=== PATIENT | male | born 1955 | race Caucasian/White ===

== ENCOUNTER → 2020-01-01 | Day surgery (SDC) | payer OTHER ==
[~2020-01-01] MED LIST: CARDIZEM CD240 M1 PO; CARDIZEM120 MG PO; ELIQUIS5 MG PO; MELATONIN3 M1 PO; NORCO 5-325 TA1 EAC1 PO; ULTRAM 50MG TAB50 MG PO
[2020-01-01 07:34] LABS: HEMATOCRIT 42.7 % (42.0-52.0); HEMOGLOBIN 14.6 gm/dL (14.0-18.0); MCH 34.8 pg (26.0-34.0); MCHC 34.3 g/dL (28.0-37.0); MCV 101.5 fL (80.0-100.0); RBC 4.21 mil/uL (4.50-6.00); RDW-CV 12.8 % (10.5-14.5); WBC 5.3 thou/uL (4.0-11.0)
[2020-01-01 07:43] LABS: CALCIUM 8.2 mg/dL (8.5-10.1); POTASSIUM 3.9 mmol/L (3.5-5.1)
--- NOTE | 2020-01-01 14:12 | EKG ---
[place] [address] ELECTROCARDIOGRAM REPORT Name: JENNIFER CHAND Room: [facility]#: [id number] Admission: 01/01/20 Attend Phys: Sly Mendes Discharge: Date of : 51 Date of Service: 01/01/2039 Report #: [id number] THIS REPORT FOR: //name// [facility] Test Date: 2020-01-01 Test Time: 07:39:42 Pat Name: JENNIFER CHAND Department: Room: Gender: [employer] Work[employer]: : 1955 Requested By: Sly Larsen Order Number: [id number] Alana MD: Colt Colón Measurements Intervals [place] Rate: 63 P: AK: QRS: 73 QRSD: 115 T: 28 QT: 403 QTc: 413 Interpretive Statements Atrial fibrillation Nonspecific intraventricular conduction delay Low voltage, extremity leads No previous ECG available for comparison Electronically Signed On 01-01-2020 14:10:53 CDT by Colt Colón [email or web address] <ELECTRONICALLY SIGNED> By: Colt Colón MD, [facility] 01/01/20 1410 8 Colt Colón MD, FACC /EPI
--- NOTE | 2020-01-02 15:09 | PATH ---
[address] [address] PATHOLOGY RPT PROCEDURE Name: JENNIFER CHAND Room: [facility] Lana.#: [id number] Admission: 01/01/20 Date of : 51 Discharge: Report #: [id number] Path Case #: [id number] [facility] Accession Number: [id number] . 01 Material submitted: . PART A: spermatic cord - RIGHT CORD LIPOMA. Modifiers: right PART B: hernia - RIGHT INGUINAL HERNIA SAC. Modifiers: right . 01 Clinical history: . Right inguinal hernia . 02 Diagnosis: A. Cord lipoma (right): - Benign fibrofatty tissue. . B. Right inguinal hernia sac: - Benign mesothelial-lined fibromembranous/fibromuscular tissue with mild chronic inflammation and prominent fibroplasia. (RICH:lolis 01/02/2020) QTP 01/02/2020 1323 Local . 02 Electronically signed: . Usman Fernández MD, Pathologist NPI- [id number] . 01 Gross description: . A. The specimen is received in formalin, labeled "Jennifer Chand, cord lipoma (right)". Received is a segment of encapsulated yellow-layne lobulated tissue measuring 6.3 x 2.3 x 1.7 cm in greatest dimensions. Sectioning reveals bright yellow cut surfaces with no grossly distinct nodules or lesions. The specimen is submitted representatively in cassette A1. . B. The specimen is received in formalin, labeled "Jennifer Chand, right inguinal hernia sac". Received is a segment of fibromembranous tissue measuring 2.6 x 1.7 x 1.0 cm in greatest dimensions. No distinct nodules or lesions are noted grossly. The specimen is submitted representatively in cassette B1. (CAA; 01/01/2020) QA/[facility] 01/01/2020 1707 Local . 02 Pathologist provided ICD-10: K40.90 . 02 CPT . 389657, 524487 Specimen Comment: A courtesy copy of this report has been sent to [phone] 309-[address] [address] PATHOLOGY RPT PROCEDURE Name: MANNIEJENNIFER [id number] Admission: 01/01/20 Date of : 51 Discharge: Report #: [id number] Path Case #: [id number] Specimen Comment: [id number] Specimen Comment: Report sent to / DR BARRIGA Performed at: 01 [facility] [address], [place], [place] [id number] MD Gold Franklin MD Phone: [phone] Performed at: [address] [facility] [address] [address], [place], [place] [id number] MD Usman Fernández MD Phone: [phone]
--- NOTE | 2020-01-07 11:48 | OP ---
[facility] [address] [place] [address] OPERATIVE REPORT Name: JENNIFER CHAND [id number] Admission: 01/01/20 Attend Phys: Sly Larsen Discharge: Date of : 51 Report #: [id number] THIS REPORT FOR: //name// cc: Mandeep Jensen MD, Kevin R. MD ~ THIS REPORT FOR: //name// CC: Sly Jensen DATE OF SERVICE: 01/01/2020 PREOPERATIVE DIAGNOSIS: Right inguinal hernia. POSTOPERATIVE DIAGNOSIS: Right indirect inguinal hernia. OPERATION: Right inguinal hernia repair with mesh. SURGEON: Sly Larsen MD. ANESTHESIA: General. ESTIMATED BLOOD LOSS: Minimal. SPECIMENS: 1. Cord lipoma. 2. Hernia sac. DESCRIPTION OF PROCEDURE: After informed consent was obtained, the patient was brought to the operating room and placed supine. SCDs were placed and working, preoperative antibiotics were administered, general anesthesia was induced. The right groin was prepped and draped in the usual sterile fashion. The area was anesthetized with 10 mL of 0.5% Marcaine. Incision was made 1 cm above the right external ring. Cautery dissection was made down through the subcutaneous tissue. Superficial epigastric vessels were ligated using a 3-0 Vicryl tie. The aponeurosis of the external oblique was identified. The aponeurosis was incised along the length of its fibers down to the external ring. A self-retaining retractor was placed. The cord was identified and isolated with a Thompsons drain. A cord lipoma was isolated and dissected out from the cord structures. It was ligated with a 3-0 Vicryl suture and sent off as a specimen. There was a small indirect hernia sac. This was fully reduced to the internal ring. It was ligated using a 3-0 Vicryl suture. A Bard soft mesh was inserted. It was trimmed to fit the area. It was sutured to the pubic tubercle. Interrupted 2-0 [place] [address] OPERATIVE REPORT Name: JENNIFER CHAND Room: [facility]#: [id number] Admission: 01/01/20 Attend Phys: Sly Larsen Discharge: Date of : 51 Report #: [id number] conjoined area. Interrupted Prolene sutures were placed suturing the mesh to the shelving edge of the inguinal ligament. The tails were then cut and placed around the internal ring. The tails were sutured together also with the Prolene. Tails were then tucked behind the aponeurosis. There was enough room for the cord structures without being too tight. The aponeurosis was reapproximated with running 3-0 Vicryl. Joenlle's fascia was reapproximated with 3-0 Vicryl suture. Skin was closed with 4-0 Monocryl in running subcuticular fashion. Sterile dressings were applied. COMPLICATIONS: None. DISPOSITION: The patient was taken to recovery in satisfactory condition. <ELECTRONICALLY SIGNED> By: Sly Larsen MD 01/07/20 1148 1119 1219Sly Larsen MD /nt
== END | disposition home or self-care (01) ==
LOC: M.SUR 06:55
PROVIDERS: ATTEND Surgery
DX: K40.90 Unilateral inguinal hernia, without obstruction or gangrene, not specified as recurrent (principal); D17.6 Benign lipomatous neoplasm of spermatic cord; I48.91 Unspecified atrial fibrillation; Z11.59 Encounter for screening for other viral diseases; Z98.890 Other specified postprocedural states; Z85.038 Personal history of other malignant neoplasm of large intestine; Z79.899 Other long term (current) drug therapy; Z79.01 Long term (current) use of anticoagulants